=== PATIENT | male | born 1980 | race Caucasian/White ===

== ENCOUNTER 2017-09-12 09:05 | Emergency (ER) | payer SELFPAY ==
[~2017-09-12] VITALS: Ht 193 cm; Wt 90.0 kg
[~2017-09-12 09:05] MED LIST: ATENOLOL50 MG PO; KLONOPIN0.5 M1 PO; LEXAPRO10 MG PO; LORTAB5 PO; MIRTAZAPINE15 MG PO; NAPROSYN500 MG PO; NO CURRENT MEDS; PAXIL30 MG PO; ROBITUSSIN AC10 ML PO; ULTRAM50 M1 PO; XANAX0.5 MG PO; ZOLOFT50 MG PO
[2017-09-12 09:36] LABS: HEMOGLOBIN 14.4 g/dl (14.0-18.0); IMMATURE GRANULOCYTES 0.5 % (0.0-1.0); MEAN CORPUSCULAR HGB 36.5 pG CALC (26.0-32.0); MEAN CORPUSCULAR HGB CONC 34.3 g/L CALC (32.0-36.0); NEUT# 3.45 thou/uL (1.82-7.42); RED BLOOD COUNT 3.94 mill/uL (4.70-6.10)
[2017-09-12 09:52] LABS: MEAN CELL VOLUME 106.6 fL CALC (80.0-100.0)
[2017-09-12 10:06] LABS: ALBUMIN 4.9 g/dL (3.2-5.0); ALKALINE PHOSPHATASE 88 u/l (38-126); ANION GAP 18 (6-22 (CALC)); BILIRUBIN, TOTAL 0.4 mg/dL (0.0-1.4); BUN 13 mg/dL (9-20); BUN/CREATININE RATIO 17 (12-20 (CALC)); CARBON DIOXIDE 25 mmol/l (22-30); CHLORIDE 99 mmol/l (95-108); CREATININE 0.8 mg/dL (0.7-1.3); GFR > 60 ML/MIN (>=60 (CALC)); GFR FOR AFR.AMER. > 60 ML/MIN (>=60 (CALC)); POTASSIUM 3.7 mmol/l (3.5-5.1); SGOT/AST 74 u/l (17-59); SGPT/ALT 64 u/l (21-72); SODIUM 138 mmol/l (137-146); TOTAL PROTEIN 8.1 g/dL (6.3-8.2)
[2017-09-12 10:23] LABS: URINE BILIRUBIN - DIPSTICK NEGATIVE (NEGATIVE); URINE BLOOD DIPSTICK NEGATIVE (NEGATIVE); URINE COLOR YELLOW; URINE GLUCOSE - DIPSTICK NEGATIVE (NEGATIVE); URINE KETONE TRACE mg/dL (NEGATIVE); URINE LEUK ESTERASE NEGATIVE (NEGATIVE); URINE NITRITE - DIPSTICK NEGATIVE (Negative); URINE PROTEIN - DIPSTICK TRACE mg/dL (NEG-TRACE); URINE UROBILINOGEN - DIPSTICK 0.2 E.U./dL (0.2)
[2017-09-12 10:56] LABS: BARBITURATES NEGATIVE (NEGATIVE); COCAINE NEGATIVE (NEGATIVE); METHADONE NEGATIVE (NEGATIVE); OXCYCODONE NEGATIVE (NEGATIVE); TETRAHYDROCANNABIONOL NEGATIVE (NEGATIVE); TRICYLIC ANTIDEPRESSANTS NEGATIVE (NEGATIVE); URINE CLARITY CLEAR
[2017-09-12] MEDS ORDERED: KLONOPIN1 MG PO (11:25)
[2017-09-12] MEDS ORDERED: ANTIVERT PO (11:25)
[2017-09-12 12:20] VITALS: BP 168/93
== END 2017-09-12 12:25 | disposition home or self-care (01) | DRG 149 ==
LOC: ED 09:05
PROVIDERS: Emergency Medicine
DX: R42 Dizziness and giddiness (principal); F41.9 Anxiety disorder, unspecified; I10 Essential (primary) hypertension; Z91.14 Patient's other noncompliance with medication regimen
CPT/HCPCS: J2060

== ENCOUNTER 2018-11-27 10:34 | Emergency (ER) | payer SELFPAY ==
[~2018-11-27] VITALS: Ht 193 cm; Wt 107.0 kg
[~2018-11-27 10:34] MED LIST changes: +ANTIVERT PO; +KLONOPIN1 MG PO
[2018-11-27] MEDS ORDERED: KEFLEX500 M1 PO (12:46)
[2018-11-27 12:57] VITALS: BP 129/69
== END 2018-11-27 12:57 | disposition home or self-care (01) | DRG 607 ==
LOC: ED 10:34
DX: B35.3 Tinea pedis (principal); L03.116 Cellulitis of left lower limb; L03.115 Cellulitis of right lower limb; I10 Essential (primary) hypertension

== ENCOUNTER 2020-10-13 09:48 | Inpatient (IN) | payer SELFPAY ==
[~2020-10-13] VITALS: Ht 193 cm; Wt 130.0 kg
[~2020-10-13 09:48] MED LIST changes: +KEFLEX500 M1 PO
--- NOTE | 2020-10-13 09:52 | NUR ---
PATIENT TO ROOM VIA WHEELCHAIR AND PHYSICIAN AT BEDSIDE FOR EVAL
--- NOTE | 2020-10-13 10:53 | NUR ---
PATIENTRESTING, NO DISTRESS. AAOX4. VSS. AWAITING RESUTLS
[2020-10-13 11:10] LABS: IMMATURE GRANULOCYTES 0.4 % (0.0-5.0); MEAN CORPUSCULAR HGB CONC 33.4 g/dL CAL (32.0-36.0); NEUT# 11.26 thou/uL (1.82-7.42); RED BLOOD COUNT 2.34 mill/uL (4.70-6.10); RED CELL DISTRI WIDTH 21.7 % (11.5-15.5)
[2020-10-13 11:11] LABS: HEMATOCRIT 30.8 % (39.0-50.0); HEMOGLOBIN 10.3 g/dl (14.0-18.0); MEAN CELL VOLUME 131.6 fL CALC (80.0-100.0)
[2020-10-13 11:13] LABS: ALKALINE PHOSPHATASE 126 u/l (38-126); AMYLASE 64 u/l (30-110); BUN 8 mg/dL (9-20); BUN/CREATININE RATIO 11 (12-20 (CALC)); CARBON DIOXIDE 28 mmol/l (22-30); CREATININE 0.7 mg/dL (0.7-1.3); GFR > 60 ML/MIN (>=60 (CALC)); GFR FOR AFR.AMER. > 60 ML/MIN (>=60 (CALC)); LIPASE 101 u/l (23-300); POTASSIUM 3.2 mmol/l (3.5-5.1); TOTAL PROTEIN 6.9 g/dL (6.3-8.2)
[2020-10-13 11:14] LABS: ANION GAP 18 (6-22 (CALC)); BILIRUBIN, TOTAL 9.7 mg/dL (0.0-1.4); CHLORIDE 85 mmol/l (95-108); SGOT/AST 353 u/l (17-59); SODIUM 128 mmol/l (137-146)
--- NOTE | 2020-10-13 12:00 | NUR ---
PATENT RESTING, AWAITING RESULTS
--- NOTE | 2020-10-13 13:00 | NUR ---
PATIENT RESTING, IVF INFUSING
--- NOTE | 2020-10-13 14:53 | NUR ---
THIRD REQUEST FOR URINE SPECIMEN. IVF INFUSED.
[2020-10-13 15:09] LABS: URINE BLOOD DIPSTICK SMALL (NEGATIVE); URINE GLUCOSE - DIPSTICK 100 mg/dL (NEGATIVE); URINE KETONE TRACE mg/dL (NEGATIVE); URINE LEUK ESTERASE TRACE (NEGATIVE); URINE PROTEIN - DIPSTICK 30 mg/dL (NEG-TRACE)
[2020-10-13 15:10] LABS: URINE BILIRUBIN - DIPSTICK LARGE (NEGATIVE); URINE COLOR DK. YELLOW; URINE NITRITE - DIPSTICK POSITIVE (Negative)
[2020-10-13 15:14] LABS: URINE BACTERIA FEW hpf; URINE HYALINE CAST FEW lpf (NONE-RARE); URINE RBC 0-2 RBC/hpf (0-5); URINE SQUAMOUS EPITHELIAL CELL FEW EPI/hpf (0-FEW); URINE WBC 0-2 WBC/hpf (0-5)
--- NOTE | 2020-10-13 15:39 | NUR ---
SPOKE WITH PATIENT AT THIS TIME PATIENT DOES NOT WANT TO BE ADMITTED. PATIENT STATES WILL RETURN TOMORROW FOR ADMIT. PATIENT ENCOURAGED TO STAY. PATIENT INFORMED OF RISKS OF LEAVING AMA INCLUDING AND UP TO . PATIENT VERBALIZES UNDERSTANDING MD NOTIFIED OF PATIENT STATUS
--- NOTE | 2020-10-13 16:00 | NUR ---
PLAN DISCUSSED, PATIENT AGREES TO BE ADMITTED. NO DISTRESS.
--- NOTE | 2020-10-13 17:00 | NUR ---
WATER PROVIDED. PATIENT RESTING, NO DISTRESS
--- NOTE | 2020-10-13 19:06 | NUR ---
REPORT RECEIVED FROM Mariaelena JOHANSEN RN.
--- NOTE | 2020-10-13 19:09 | NUR ---
REPORT CALLED TO FRIDA AT THIS TIME.
--- NOTE | 2020-10-13 19:20 | NUR ---
Admission Note Report Given to: Transported by: Wheelchair X Stretcher Transported with: X Nurse Transporter X Patent IV O2 X Recycling Sorter Location: ICU X MS2
[2020-10-13 19:25] VITALS: BP 129/76
--- NOTE | 2020-10-13 19:34 | NUR ---
PATIENT ARRIVED VIA STRETCHER ACCOMPANIED BY ER STAFF. ORIENTED X3. ABLE TO AMBULATE WITHOUT ASSIST. ADMISSION ASSESMENT AND VITALS COMPLETED AT THIS TIME. #20 G IN RIGHT AC INFUSING IVF AT 100 ML/HR, B/P 129/76, HR 131, RESPIRATIONS 18 EVEN AND UNLABORED. HR RATE SYNUS TACHY RUNNING 120-130'S ACCORDING TO TELE. LUNGS CLEAR BILATERALLY, ACTIVE BOWEL SOUNDS. PITTING EDEMA NOTED THROUGHOUT BILATERAL LEGS 3+. YELLOWING OF SCLERA NOTED BILATERAL EYES. PATIENT STATES HE STOPPED SMOKING A MONTH AGO DUE TO ILLNESS AND HAS IN THE PAST 2-3 DAYS STOPPED DRINKING. PATIENT ORIENTED TO CALL LIGHT AND ASKED TO CALL IF HE IS TO NEED ASSISTANCE.
--- NOTE | 2020-10-13 20:10 | NUR ---
ORDERS RECIEVED FOR LOPRESSOR 25MG PO/LOPRESSOR IV 5MG, ATIVAN 1MG IV, AND LIBRIUM 25MG PO.
--- NOTE | 2020-10-13 20:23 | NUR ---
MEDICATIONS ADMINISTERED AT THIS TIME, SEE EMAR
--- NOTE | 2020-10-13 20:23 | NUR ---
PATIENT REFUSED LOVENOX INJECTION. STATES IT WILL MESS WITH HIS BELLY. PATIENT EDUCATED ON ADMNISTRATIONS AND MECHANISM. PATIENT VERBALIZES UNDERSTANDING, REFUSES INJECTION.
--- NOTE | 2020-10-13 21:16 | NUR ---
REASSESEMENT OF HR BY Daniella RUVALCABAA; HR 113
--- NOTE | 2020-10-13 23:04 | NUR ---
ANSWERED PATIENT CALL. UPON ENTERING ROOM PATIENT VOMITING IN TRASH CAN BESIDE THE BED. PROVIDED PATIENT WITH TOWELS AND WASHCLOTHS TO CLEAN UP. PROVIDED EXTRA WASHCLOTHS.
--- NOTE | 2020-10-13 23:27 | NUR ---
ADMINISTERED ATIVAN 1MG, FOR WITHDRAWAL SYMPTOMS, SEE EMAR.
[2020-10-14] VITALS: BP 92/55
--- NOTE | 2020-10-14 00:11 | NUR ---
PATIENT RESTING COMFORTABLY IN BED, IN NO APPARENT DISSTRESS, PATIENT STATES HE FEELS "MUCH BETTER". WILL CON'T TO MONITOR.
--- NOTE | 2020-10-14 00:30 | NUR ---
PATIENT SLEEPING SOUNDLY IN BED HR 105. WILL CON'T TO MONITOR.
[2020-10-14 04:00] VITALS: BP 100/55
--- NOTE | 2020-10-14 04:17 | NUR ---
FELY AT BEDSIDE DRAWING BLOOD
[2020-10-14 05:12] LABS: HEMATOCRIT 26.6 % (39.0-50.0); HEMOGLOBIN 9.7 g/dl (14.0-18.0); MEAN CORPUSCULAR HGB 43.1 pG CALC (26.0-32.0); MEAN CORPUSCULAR HGB CONC 36.5 g/dL CAL (32.0-36.0); RED BLOOD COUNT 2.25 mill/uL (4.70-6.10); RED CELL DISTRI WIDTH 20.5 % (11.5-15.5)
[2020-10-14 05:21] LABS: MEAN CELL VOLUME 118.2 fL CALC (80.0-100.0)
--- NOTE | 2020-10-14 05:28 | NUR ---
ACCORDING TO ED, PATIENT SYNUS TACH 110
[2020-10-14 05:56] LABS: ALBUMIN 2.7 g/dL (3.2-5.0); ALKALINE PHOSPHATASE 120 u/l (38-126); ANION GAP 14 (6-22 (CALC)); BILIRUBIN, TOTAL 11.2 mg/dL (0.0-1.4); BUN 11 mg/dL (9-20); BUN/CREATININE RATIO 12 (12-20 (CALC)); CARBON DIOXIDE 30 mmol/l (22-30); CHLORIDE 90 mmol/l (95-108); CREATININE 0.9 mg/dL (0.7-1.3); GFR > 60 ML/MIN (>=60 (CALC)); GFR FOR AFR.AMER. > 60 ML/MIN (>=60 (CALC)); POTASSIUM 3.4 mmol/l (3.5-5.1); SGOT/AST 327 u/l (17-59); SODIUM 130 mmol/l (137-146); TOTAL PROTEIN 6.5 g/dL (6.3-8.2)
--- NOTE | 2020-10-14 07:00 | NUR ---
REPORT RECEIVED FROM AARON GALICIA
[2020-10-14 08:54] VITALS: BP 107/54
--- NOTE | 2020-10-14 08:55 | NUR ---
PT RESTING IN SEMI FOWLERS POSITION,A&O X3;VS OBTAINED AND ASSESSMENT COMPLETED;PT DENIES ANY CURRENT PAIN OR DISCOMFORTS,PAIN SCALE AND REPORTING EDUCATED;RESPIRATIONS EVEN AND UNLABORED ON RA,CLEAR LUNG SOUNDS;ABDOMEN DISTENDED/SOFT ON PALPATION AND ACTIVE IN ALL 4 QUADRANTS;WEAK PEDAL PULSES;SKIN INTACT;TELE MONITORING IN PLACE;#20G TO RAC INFUSING NS @ 100ML/HR,SITE APPEARS HEALTHY;PRN LIBRIUM PROVIDED AT THIS TIME;PT DENIES ANY ADDITIONAL NEEDS AND IS ENCOURAGED TO CALL FOR ASSISTANCE IF NEEDED;FALL PRECAUTIONS IN PLACE WITH BED IN THE LOWEST POSTION AND CALL LIGHT IN REACH;WILL CONTINUE TO MONITOR
[2020-10-14 10:06] LABS: INTERNATIONAL NORMALIZED RATIO 1.5 RATIO (0.7-1.3); PROTHROMBIN TIME 15.5 SECONDS (9.0-12.5)
--- NOTE | 2020-10-14 10:20 | NUR ---
ELI, STORE TEAM MEMBER AT BEDSIDE
--- NOTE | 2020-10-14 10:27 | NUR ---
AT BEDSIDE DISCUSSING POC
--- NOTE | 2020-10-14 10:50 | NUR ---
PT REPORTS NAUSEA AND VOMITED 200CC OF UNDIGESTED FOOD, PT MEDICATED WITH PRN ZOFRAN 4MG IVP;WILL CONTINUE TO MONITOR FOR EFFECTIVENESS
[2020-10-14 11:15] VITALS: BP 94/56
--- NOTE | 2020-10-14 11:40 | NUR ---
PT RESTING IN SEMI FOWLERS POSITION;RESPIRATIONS EVEN AND UNLABORED ON RA;PT DENIES ANY CURRENT PAIN OR DISCOMFORTS;TELE MONITORING IN PLACE;IV SITE PATENT INFUSING BANANA BAG WITH EASE;PT ENCOURAGED TO CALL FOR ASSISTANCE IF NEEDED;FALL PRECAUTIONS REMAIN IN PLACE WITH CALL LIGHT IN REACH;WILL CONTINUE TO MONITOR
--- NOTE | 2020-10-14 15:00 | NUR ---
PT MEDICATED WITH PRN LIBRIUM 25MG PO AT THIS TIME.
--- NOTE | 2020-10-14 15:20 | NUR ---
PT RESTING IN SEMI FOWLERS POSITION;RESPIRATIONS EVEN AND UNLABORED ON RA;PT DENIES ANY CURRENT PAIN OR DISCOMFORTS;TELE MONITORING IN PLACE;IV SITE PATENT INFUSING BANANA BAG WITH EASE;ICE WATER AND ADDITIONAL BLANKETS PROVIDED PER REQUEST;PT ENCOURAGED TO CALL FOR ASSISTANCE IF NEEDED;FALL PRECAUTIONS REMAIN IN PLACE WITH CALL LIGHT IN REACH;WILL CONTINUE TO MONITOR
[2020-10-14 15:33] VITALS: BP 107/50
--- NOTE | 2020-10-14 18:45 | NUR ---
REPORT RECEIVED FROM Marcie YOON RN
[2020-10-14 19:00] VITALS: BP 90/48
--- NOTE | 2020-10-14 19:23 | NUR ---
REPORT RECEIVED FROM Marcie YOON RN
--- NOTE | 2020-10-14 20:33 | NUR ---
PATIENT RESTING COMFORTABLY WATCHING TV. ASSESMENT COMPLETED AT THIS TIME. #20 G ON RIGHT AC INFUSING NORMAL SALINE AT 100ML/HR. NORMAL HEART SSOUNDS, CLEAR LUNG SOUNDS BILATERALLY AND IN ALL LOBES, ACTIVE BOWEL SOUNDS, SOFT DISTENDED BELLY. LAST REPORTED BM 10/13/20. PATIENT NOTED TO HAVE YELLOW TINGE TO BOTH SCLERA, AND JAUDICE THROUGHOUT. BILATERAL LEG EDEMA AT 3+. TEA COLORED URINE OBSERVED. PATIENT DENIES ANY CURRENT PAIN OR ANY CURRENT NEEDS. CARE PLAN REVIEWED AT THIS TIME. PATIENT INSTRUCTED TO CALL IF ASSITANCE IS NEEDED. CALL LIGHT AND BEDISIDE TABLE WIHIN REACH. MEDICATIONS ADMINISTERED ACCORDING TO EMAR, SEE EMAR.
[2020-10-15] VITALS: BP 114/62
--- NOTE | 2020-10-15 | NUR ---
PATIENT SLEEPING SOUNDLY, NO SIGNS OF APPRENT DISTRESS
--- NOTE | 2020-10-15 00:40 | NUR ---
CALL RECEIVED FROM ER. RHODES WITH PVS AT 128BPM.
--- NOTE | 2020-10-15 00:45 | NUR ---
PATIENT MEDICATED WITH METORPROLOL IV PER EMAR, SEE EMAR.
--- NOTE | 2020-10-15 00:50 | NUR ---
CALLED ER, SPOKE TO HR CARITO NOW AT 108BPM.
--- NOTE | 2020-10-15 03:06 | NUR ---
CALLED ER, SPOKE TO HR CARITO NOW AT 108BPM.
[2020-10-15 04:00] VITALS: BP 97/51
--- NOTE | 2020-10-15 04:33 | NUR ---
PATIENT SNORING SOFTLY, AWOKEN BY ANALYTICS LEADER, ENCOURAGED TO DRINK WATER AND USE THE RESTROOM.
--- NOTE | 2020-10-15 05:08 | NUR ---
100.8 TEMP REPORTED BY Daniella BEVERLY CNA AT 4AM. REASSED TEMP, CURRENT TEMPERATURE AT 98.7
[2020-10-15 06:06] LABS: ALBUMIN 2.6 g/dL (3.2-5.0); ALKALINE PHOSPHATASE 106 u/l (38-126); ANION GAP 13 (6-22 (CALC)); BILIRUBIN, TOTAL 11.7 mg/dL (0.0-1.4); BUN 13 mg/dL (9-20); BUN/CREATININE RATIO 17 (12-20 (CALC)); CARBON DIOXIDE 28 mmol/l (22-30); CHLORIDE 94 mmol/l (95-108); CREATININE 0.8 mg/dL (0.7-1.3); GFR > 60 ML/MIN (>=60 (CALC)); GFR FOR AFR.AMER. > 60 ML/MIN (>=60 (CALC)); MAGNESIUM 1.9 mg/dL (1.6-2.3); POTASSIUM 3.7 mmol/l (3.5-5.1); SGOT/AST 292 u/l (17-59); SODIUM 132 mmol/l (137-146); TOTAL PROTEIN 6.2 g/dL (6.3-8.2)
[2020-10-15 06:10] LABS: HEMATOCRIT 24.6 % (39.0-50.0); IMMATURE GRANULOCYTES 0.4 % (0.0-5.0); MEAN CELL VOLUME 121.8 fL CALC (80.0-100.0); MEAN CORPUSCULAR HGB 44.6 pG CALC (26.0-32.0); MEAN CORPUSCULAR HGB CONC 36.6 g/dL CAL (32.0-36.0); NEUT# 8.79 thou/uL (1.82-7.42); RED BLOOD COUNT 2.02 mill/uL (4.70-6.10); RED CELL DISTRI WIDTH 20.8 % (11.5-15.5)
[2020-10-15 06:12] LABS: INTERNATIONAL NORMALIZED RATIO 1.6 RATIO (0.7-1.3); PROTHROMBIN TIME 15.9 SECONDS (9.0-12.5)
[2020-10-15 07:10] VITALS: BP 104/62
--- NOTE | 2020-10-15 07:10 | NUR ---
PATIENT LAYING IN BED AT THIS TIME. RATE ENGINEER DONE AT THIS TIME SEE INTERVENTIONS. PATIENT LUNG GIRARD ARE CLEAR AND PATIENT DOES EXHIBIT JAUNDICE COLOR SKIN TO INCLUDE THE SCLAREA OF THE EYES. PATIENT STATES HE "NEVER HAS NOTICED THIS". PATIENT DOES HAVE 3+ PITTING EDEMA IN BILATERAL LOWER LEGS PRESENT. PATIENT DENIES ANY PAIN BUT DOES STATE HE HAS SOME MILD ANXIETY AND CIWA SCORE WAS A 1 AT THIS TIME. BLADDER SCANNED AND WAS FOUND TO HAVE 55 ML IN BLADDER AND PATIENT RECENTLY URINATED AND URINE IS TEA IN COLOR. SIDERAILS ARE UP CALL LIGHT WITHIN REACH.
--- NOTE | 2020-10-15 09:15 | NUR ---
CRITICAL RESULTS REC FROM DB OF PROCALCITONIN RESULT OF 0.378, RESULTS GIVEN TO Tana BIRCH APRN.
--- NOTE | 2020-10-15 09:17 | NUR ---
PATIENT GIVEN 0.5MG OF IV ATIVAN AT THIS TIME. PATIENT STATES I FEEL 'JUST A LITTLE ANXIOUS. PATIENT SIDERAILS ARE UP AND PATIENT ADVISED NOT TO GET UP WITHOUT ASSISTANCE AT THIS TIME. PATIENT VERBALIZES UNDERSTANDING OF THIS REQUEST. WILL CONTINUE TO MONITOR.
--- NOTE | 2020-10-15 09:24 | NUR ---
NURSE DARRIUS WALKER TOOK A CRITICAL LAB ON THIS PATIENT PROCALCITONIN WAS 0.328 LUCILA GARCES NOTIFIED AT THIS TIME. NO NEW ORDERS GIVEN
--- NOTE | 2020-10-15 11:00 | NUR ---
PATIENT RETURNED FROM CT DENEIS ANY NEEDS SIDERAIL ARE UP CALL LIGHT NEAR. WILL CONTINUE TO MONITOR AT THIS TIME.
--- NOTE | 2020-10-15 12:46 | NUR ---
PATIENT STATED THAT HE WENT TO THE BATHROOM AND VOIDED A LARGE AMOUNT OF URING AT THIS TIME. PATIENT WAS ASKED TO USE URINAL SO THAT WE CAN MEASURE HIS URINE AND PATIENT STATED "I DON'T LIKE TO USE THOSE THINGS". PATIENT ENCOURGED TO TRY IF HE COULD TO USE URINAL. PATIENT STATED "I WILL TRY". PATIENT CALL LIGHT WITHIN REACH SIDERAILS ARE UP X 2
[2020-10-15 15:00] VITALS: BP 95/49
--- NOTE | 2020-10-15 15:17 | NUR ---
PATIENT RESTING IN BED AT THIS TIME. PATIENT DENIES ANY PAIN AND OR ANXIETY AT THIS TIME. PATIENT COLOR REMAINS JAUNDICE AT THIS TIME AND 3+ PITTING EDEMA REMAINS IN BILATERAL LOWER LEGS AND ANKLES. PATIENT HAS TELE MONITOR ON AND IS BEING MONTIORED BY ED. SIDERAILS ARE UP CALL LIGHT IS WITHIN REACH AT THIS TIME.
--- NOTE | 2020-10-15 16:03 | NUR ---
MEDICATED PATIENT AT THIS TIME WITH 600MG OF IBUPROFEN DUE TO PATIENTS TEMP OF 99.7. WILL CONTINUE TO MONITOR PATIENT.
--- NOTE | 2020-10-15 16:56 | NUR ---
PATIENT TEMP RECHECKED AT THIS TIME AND IT IS 99.3 WILL CONTINUE TO MONITOR.
[2020-10-15 18:00] VITALS: BP 105/55
--- NOTE | 2020-10-15 20:05 | NUR ---
PT AMBULATING THE ROOM WATCHING THE HELICOPTER THROUGH THE WINDOW. INFORMED HIM THAT I COULD COME BACK TO ASSESS AND MEDICATE/AGREED.
--- NOTE | 2020-10-15 20:59 | NUR ---
PT MEDICATED ORDERS PROVIDE AND ASSESSMENT COMPLETED AT THIS TIME. POC AND MED SCHEDULE DISCUSSED AT THIS TIME. PT DENIES ANY OTHER NEEDS AT THIS TIME. HE REPORTS URINATING IN RESPONSE TO THE LASIX, HE STATED, "IT REALLY WORKED, I HAD A LOT OF URINE OUT." HE IS NOT USING URINAL FOR US TO MEASURE, WE REDISCUSSED THIS, BUT HE STATES "IT'S OKAY." I ENCOURAGED HIM TO CALL ANY NEEDS ARISE. COMFORT MEASURES PROVIDED AT THIS TIME W/SNACK/DRINK.
[2020-10-15 23:53] VITALS: BP 92/55
[2020-10-16 03:39] VITALS: BP 90/54
--- NOTE | 2020-10-16 04:17 | NUR ---
PT IN BED WITH LIGHTS OUT EYES CLOSED, LAB WAS JUST AT BEDSIDE OBTAINING LAB DRAW. NO S/O DISTRESS NOTED. IVF RUNNING KVO.
[2020-10-16 05:40] LABS: HEMATOCRIT 24.8 % (39.0-50.0); IMMATURE GRANULOCYTES 0.9 % (0.0-5.0); MEAN CELL VOLUME 123.4 fL CALC (80.0-100.0); MEAN CORPUSCULAR HGB 44.8 pG CALC (26.0-32.0); MEAN CORPUSCULAR HGB CONC 36.3 g/dL CAL (32.0-36.0); NEUT# 8.64 thou/uL (1.82-7.42); RED BLOOD COUNT 2.01 mill/uL (4.70-6.10); RED CELL DISTRI WIDTH 20.8 % (11.5-15.5)
[2020-10-16 05:56] LABS: ALBUMIN 2.7 g/dL (3.2-5.0); ALKALINE PHOSPHATASE 151 u/l (38-126); ANION GAP 13 (6-22 (CALC)); BILIRUBIN, TOTAL 12.5 mg/dL (0.0-1.4); BUN 15 mg/dL (9-20); BUN/CREATININE RATIO 17 (12-20 (CALC)); CARBON DIOXIDE 27 mmol/l (22-30); CHLORIDE 96 mmol/l (95-108); CREATININE 0.9 mg/dL (0.7-1.3); GFR > 60 ML/MIN (>=60 (CALC)); GFR FOR AFR.AMER. > 60 ML/MIN (>=60 (CALC)); MAGNESIUM 1.7 mg/dL (1.6-2.3); POTASSIUM 3.5 mmol/l (3.5-5.1); SGOT/AST 294 u/l (17-59); SODIUM 131 mmol/l (137-146); TOTAL PROTEIN 6.6 g/dL (6.3-8.2)
[2020-10-16 06:13] LABS: INTERNATIONAL NORMALIZED RATIO 1.6 RATIO (0.7-1.3); PROTHROMBIN TIME 16.1 SECONDS (9.0-12.5)
--- NOTE | 2020-10-16 06:23 | NUR ---
PT MEDICATED WITH LIBRIUM. MILD TREMORS, DENIES ANY AUDITORY OR VISUAL DISTURBANCES.
--- NOTE | 2020-10-16 07:00 | NUR ---
SHIFT REPORT, ALERT AND ORIENTED SITTING IN BED, DENIES DISCOMFORT, STATES BECOMES ANXIOUS AT TIMES, IVF INFUSING, TELE MONITOR IN PLACE, FEET SWOLEN, CALL LANDRY IN RECH.
[2020-10-16 07:45] VITALS: BP 106/56
[2020-10-16 11:53] VITALS: BP 86/56
--- NOTE | 2020-10-16 12:00 | NUR ---
MEDICAL TEAM ROUNDED, DISCUSSED POC, PT STATES UNDERSTANDING.
--- NOTE | 2020-10-16 16:00 | NUR ---
RELAXING IN BED, CONDITION UNCHANGED, NO SIGN ANXIETY OR TREMORS, RELAXING WATCHING TV.
--- NOTE | 2020-10-16 19:30 | NUR ---
PT IN BED WITH LIGHTS LOW, AWAKE. ASSESSMENT COMPLETED AT THIS TIME AND POC DISCUSSED. PT DENIED ANY NEEDS AT THIS TIME. CALL LIGHT AT SIDE.
--- NOTE | 2020-10-16 21:09 | NUR ---
PT MEDICATED ORDER PROVIDE. BP REASSESSED AND MEDICATIONS ADMINISTERED. HR 118, BP 96/56. WE ASSISTED PT TO CHAIR AND REMADE HIS BED WITH FRESH BEDDING. PT WAS VERY WEAK GETTING OUT OF THE BED AND AMBULATING. EDEMA BLE 3+.
[2020-10-17] VITALS (9 sets, daily range): BP systolic 82–143; BP diastolic 43–62
--- NOTE | 2020-10-17 00:47 | NUR ---
V/S ASSESSED, PT HOB FLAT WITH FEET SLIGHTLY ELEVATED. HE WAS SLEEPING, AWAKENED TO MY VOICE AND PROMPTLY RETURNED TO SLEEP, DENIES DIZZINESS OR LIGHT HEADED FEELING. CALL LIGHT AT SIDE AND PT ENCOUARGED TO CALL.
--- NOTE | 2020-10-17 03:50 | NUR ---
CERTIFIED ADAPTIVE PHYSICAL EDUCATOR AT BEDSIDE OBTAINING V/S. PT AWOKE TO OUR VOICES, DENIES ANY NEEDS AT THIS TIME.
[2020-10-17 05:11] LABS: HEMATOCRIT 23.3 % (39.0-50.0); HEMOGLOBIN 8.6 g/dl (14.0-18.0); MEAN CELL VOLUME 123.3 fL CALC (80.0-100.0); MEAN CORPUSCULAR HGB 45.5 pG CALC (26.0-32.0); MEAN CORPUSCULAR HGB CONC 36.9 g/dL CAL (32.0-36.0); RED BLOOD COUNT 1.89 mill/uL (4.70-6.10); RED CELL DISTRI WIDTH 21.2 % (11.5-15.5)
[2020-10-17 05:29] LABS: ANION GAP 13 (6-22 (CALC)); BUN 19 mg/dL (9-20); BUN/CREATININE RATIO 20 (12-20 (CALC)); CARBON DIOXIDE 26 mmol/l (22-30); CHLORIDE 96 mmol/l (95-108); CREATININE 0.9 mg/dL (0.7-1.3); GFR > 60 ML/MIN (>=60 (CALC)); GFR FOR AFR.AMER. > 60 ML/MIN (>=60 (CALC)); MAGNESIUM 1.7 mg/dL (1.6-2.3); POTASSIUM 3.8 mmol/l (3.5-5.1); SODIUM 131 mmol/l (137-146)
--- NOTE | 2020-10-17 05:29 | NUR ---
TEMPERATURE RECHECKED 98.4. PT WAS SLEEPING, AWOKE TO MY VOICE. NO S/O DISTRESS NOTED. DENIES NEEDS.
--- NOTE | 2020-10-17 07:00 | NUR ---
REPORT RECEIVED FROM AARON ROME
--- NOTE | 2020-10-17 07:50 | NUR ---
PT RESTING IN SEMI FOWLERS POSITION,A&O X3;VS OBTAINED AND ASSESSMENT COMPLETED;PT DENIES ANY CURRENT PAIN OR DISCOMFORTS,PAIN SCALE AND REPORTING EDUCATED;RESPIRATIONS EVEN AND UNLABORED ON RA,CLEAR LUNG SOUNDS;ABDOMEN SOFT ON PALPATION AND ACTIVE IN ALL 4 QUADRANTS;WEAK PEDAL PULSES WITH +2 EDEMA TO BLE, ENCOURAGED ELEVATION OF BLE;#20G TO RAC INFUSING NS @ 20ML/HR,SITE APPEARS HEALTHY;TELE MONITORING IN PLACE;PT DENIES ANY ADDITIONAL NEEDS AND IS ENCOURAGED TO CALL FOR ASSISTANCE IF NEEDED;FALL PRECAUTIONS IN PLACE WITH BED IN THE LOWEST POSITION AND CALL LIGHT IN REACH;WILL CONTINUE TO MONITOR
--- NOTE | 2020-10-17 10:05 | NUR ---
AT BEDSIDE DISCUSSING POC.
--- NOTE | 2020-10-17 11:00 | NUR ---
PT OOB RESTING IN RECLINER;RESPIRATIONS EVEN AND UNLABORED ON RA;PT DENIES ANY CURRENT PAIN OR DISCOMFORTS;TELE MONITORING IN PLACE;IV SITE PATENT INFUSING NS WITH EASE PER ORDER;PT ENCOURAGED TO CALL FOR ASSISTANCE IF NEEDED;FALL PRECAUTIONS IN PLACE WITH BED IN THE LOWEST POSITION AND CALL LIGHT IN REACH;WILL CONTINUE TO MONITOR
--- NOTE | 2020-10-17 12:36 | NUR ---
Physical Therapy Visit Patient was seen and treated today. Patient identified by full name and date of . Physical Therapy Management 1. Active range of motion of both UE and LE x 5-10 repetitions. 2. Sit and stand and stand and sit x 5 repetitions. 3. Sitting tolerance x 5 minutes. 4. Standing balance/tolerance x 3-5 minutes. 5. Marching x 10 repetitions with minimal assist. Patient was able to perform all exercises but fatigued quickly. Unsteadiness observed while patient is attempting to sit and stand and trying to maintain standing position. Fall precautions reviewed, patient verbalized understanding.
--- NOTE | 2020-10-17 15:30 | NUR ---
PT RESTING IN SEMI FOWLERS POSITION;RESPIRATIONS EVEN AND UNLABORED ON RA;PT DENIES ANY CURRENT PAIN OR DISCOMFORTS;TELE MONITORING IN PLACE;IV SITE PATENT INFUSING NS WITH EASE PER ORDER;PT ENCOURAGED TO CALL FOR ASSISTANCE IF NEEDED;FALL PRECAUTIONS IN PLACE WITH BED IN THE LOWEST POSITION AND CALL LIGHT IN REACH;WILL CONTINUE TO MONITOR
--- NOTE | 2020-10-17 16:30 | NUR ---
CONSULT COMPLETED AT THIS TIME.
--- NOTE | 2020-10-17 16:49 | NUR ---
PT MEDICATED WITH 1MG OF ATIVAN SLOW IVP PER REQUEST FOR ANXIETY, WILL CONTINUE TO MONITOR FOR EFFECTIVENESS
--- NOTE | 2020-10-17 20:23 | NUR ---
PT ASSESSMENT COMPLETED AT THIS TIME. PT ALSO MEDICATED ORDERS PROVIDE. HR ST105, BP STABLE. LUNG SOUNDS ARE CLEAR. PT DENIES ANY DISTRESSES. SNACK PROVIDED.
--- NOTE | 2020-10-17 20:56 | NUR ---
PT MEDICATED WITH LIBRIUM. HE ASKED IF HE COULD HAVE THE ATIVAN AGAIN, C/O FEELING VERY EMOTIONAL. REPORTS HAVING HAD A PANIC ATTACK EARLIER AND STILL FEELS ANXIOUS. UNABLE TO MEDICATE WITH ATIVAN AT THIS TIME, PREVIOUSLY GIVEN THIS AFTERNOON. PT AGREED THAT HE FELT MAYBE THE LIBRIUM WOULD HELP. MILD TREMORS OBSERVED AT THIS TIME.
--- NOTE | 2020-10-18 01:11 | NUR ---
PT MEDICATED ORDERS ALLOW FOR ANXIOUSNESS AND IVF REPLENISHED AT THIS TIME.
[2020-10-18 04:00] VITALS: BP 113/65
--- NOTE | 2020-10-18 04:50 | NUR ---
LAB IS IN WITH THE PT. IVPUMP CLEARED AT THIS TIME. PT STATES HE HAS BEEN SLEEPING AND APPEARS GROGGY, PROMPTLY RETURNED TO SLEEP. NO S/O DISTRESS.
[2020-10-18 05:35] LABS: HEMATOCRIT 25.9 % (39.0-50.0); HEMOGLOBIN 9.4 g/dl (14.0-18.0); IMMATURE GRANULOCYTES 1.2 % (0.0-5.0); MEAN CORPUSCULAR HGB 46.1 pG CALC (26.0-32.0); MEAN CORPUSCULAR HGB CONC 36.3 g/dL CAL (32.0-36.0); NEUT# 6.85 thou/uL (1.82-7.42); RED BLOOD COUNT 2.04 mill/uL (4.70-6.10); RED CELL DISTRI WIDTH 23.2 % (11.5-15.5)
[2020-10-18 05:44] LABS: ALBUMIN 2.4 g/dL (3.2-5.0); ALKALINE PHOSPHATASE 126 u/l (38-126); ANION GAP 12 (6-22 (CALC)); BILIRUBIN, TOTAL 10.2 mg/dL (0.0-1.4); BUN 18 mg/dL (9-20); BUN/CREATININE RATIO 22 (12-20 (CALC)); CARBON DIOXIDE 26 mmol/l (22-30); CHLORIDE 98 mmol/l (95-108); CREATININE 0.8 mg/dL (0.7-1.3); GFR > 60 ML/MIN (>=60 (CALC)); GFR FOR AFR.AMER. > 60 ML/MIN (>=60 (CALC)); POTASSIUM 3.7 mmol/l (3.5-5.1); SGOT/AST 337 u/l (17-59); SODIUM 132 mmol/l (137-146); TOTAL PROTEIN 6.2 g/dL (6.3-8.2)
--- NOTE | 2020-10-18 07:00 | NUR ---
REPORT RECEIVED FROM AARON ROME
--- NOTE | 2020-10-18 08:00 | NUR ---
PT RESTING IN SEMI FOWLERS POSITION,A&O X3;VS OBTAINED AND ASSESSMENT COMPLETED;PT DENIES ANY CURRENT PAIN OR DISCOMFORTS,PAIN SCALE AND REPORTING EDUCATED;PT MEDICATED WITH PRN LIBRIUM 25MG PO AT THIS TIME PER REQUEST;RESPIRATIONS EVEN AND UNLABORED ON RA,CLEAR LUNG SOUNDS;ABDOMEN SOFT ON PALPATION AND ACTIVE IN ALL 4 QUADRANTS;WEAK PEDAL PULSES WITH +2 EDEMA BLE,ENCOURAGED ELEVATION;#20G TO RAC INFUSING NS @ 20ML/HR,SITE APPEARS HEALTHY;TELE MONITORING IN PLACE;PT DENIES ANY ADDITIONAL NEEDS AND IS ENCOURAGED TO CALL FOR ASSISTANCE IF NEEDED;FALL PRECAUTIONS IN PLACE WITH BED IN THE LOWEST POSITION;CALL LIGHT IN REACH;WILL CONTINUE TO MONITOR
[2020-10-18 08:02] VITALS: BP 114/66
--- NOTE | 2020-10-18 08:55 | NUR ---
PT MEDICATED WITH PRN ATIVAN 1MG SLOW IVP PER REQUEST,WILL CONTINUE TO MONITOR FOR EFFECTIVENESS
[2020-10-18] MEDS ORDERED: ALDACTONE25 MG PO (09:17)
[2020-10-18] MEDS ORDERED: LASIX 40 MG TAB40 MG PO (09:17)
--- NOTE | 2020-10-18 09:18 | NUR ---
AT BEDSIDE DISCUSSING POC WITH PT.
--- NOTE | 2020-10-18 10:50 | NUR ---
PT RESTING IN SEMI FOWLERS POSITION;RESPIRATIONS EVEN AND UNLABORED ON RA;PT DENIES ANY CURRENT PAIN OR NEEDS;IV SITE REMAINS PATENT;TELE MONITORING IN PLACE;PT EDUCATED ON PLANS TO D/C HOME THIS AFTERNOON AND VERBALIZES UNDERSTANDING;ENCOURAGED TO CALL FOR ASSISTANCE IF NEEDED;FALL PRECAUTIONS IN PLACE WITH CALL LIGHT IN REACH;WILL CONTINUE TO MONITOR
[2020-10-18 10:56] VITALS: BP 92/54
--- NOTE | 2020-10-18 12:10 | NUR ---
ALL DISCHARGE INSTRUCTIONS PROVIDED AT THIS TIME;PT INSTRUCTED TO F/U WITH PCP NEXT WEEK AND THAT HE WOULD BENEFIT FROM F/U CHEST CT IN 6 MTHS.CONTINUE HOME [place] MEDICATIONS;RX SENT TO PHARMACY FOR ALDACTONE ANS LASIX AND PT TO TAKE DIRECTED;LOW SODIUM DIET;REPEAT CHEMISTRY IN 1 WEEK AND ORDER SENT WITH PT,NO TYLENOL FOR PAIN ONLY MOTRIN AND NO ALCOHOL USE. EDUCATION FOR A LIVER HEALTHY DIET ALSO PROVIDED;PT DENIES ANY ADDITIONAL QUESTIONS OR NEEDS;IV SITE REMOVED WITH CATHETER INTACT AND TELE MONITORING D/C;WHEELCHAIR TO BE PROVIDED FOR D/C HOME;FAMILY TO TRANSPORT PT HOME;WILL CONTINUE TO MONITOR
--- NOTE | 2020-10-18 12:32 | NUR ---
Discharge instructions given. Patient verbalizes understanding of same. Discharged in stable condition via Wheelchair to Home with family. All belongings sent with pt. PT TRANSPORTED TO [facility] IN STABLE CONDITION VIA WHEELCHAIR ACCOMPANIED BY ZULMA PHILLIPS FOR D/C HOME;ALL BELONGINGS LEFT WITH PT;FAMILY TO TRANSPORT PT HOME.
[2020-12-04] MEDS ORDERED: LACTULOSE PO (11:54)
== END 2020-10-17 12:33 | disposition home or self-care (01) | DRG 433 ==
LOC: ED 09:48 → ED-I 15:45 → ED 16:33 → MS2 16:34
PROVIDERS: Emergency Medicine; Nurse Practitioner; Nurse Practitioner Family; ADMIT Hospitalist; ATTEND Hospitalist
DX: K70.30 Alcoholic cirrhosis of liver without ascites (principal); E87.1 Hypo-osmolality and hyponatremia; F10.20 Alcohol dependence, uncomplicated; K72.90 Hepatic failure, unspecified without coma; E87.6 Hypokalemia; E87.8 Other disorders of electrolyte and fluid balance, not elsewhere classified; E88.09 Other disorders of plasma-protein metabolism, not elsewhere classified; D64.9 Anemia, unspecified; K70.0 Alcoholic fatty liver; I10 Essential (primary) hypertension; F41.9 Anxiety disorder, unspecified; G62.9 Polyneuropathy, unspecified; E80.6 Other disorders of bilirubin metabolism; D69.6 Thrombocytopenia, unspecified; R79.1 Abnormal coagulation profile; R50.9 Fever, unspecified; E83.42 Hypomagnesemia; J98.4 Other disorders of lung; R73.9 Hyperglycemia, unspecified; F17.200 Nicotine dependence, unspecified, uncomplicated; Z20.822 Contact with and (suspected) exposure to COVID-19
CPT/HCPCS: J1650; J2060; J3475; Q9967; S0164

== ENCOUNTER 2020-11-23 10:48 | Inpatient (IN) | payer SELFPAY ==
[~2020-11-23] VITALS: Ht 193 cm; Wt 122.0 kg
[~2020-11-23 10:48] MED LIST changes: +ALDACTONE25 MG PO; +LASIX 40 MG TAB40 MG PO
--- NOTE | 2020-11-23 10:48 | NUR ---
PT TO ROOM VIA EMS STRETCHER.
[2020-11-23 12:02] LABS: HEMOGLOBIN 10.5 g/dl (14.0-18.0); IMMATURE GRANULOCYTES 0.2 % (0.0-5.0); MEAN CORPUSCULAR HGB 38.5 pG CALC (26.0-32.0); MEAN CORPUSCULAR HGB CONC 32.9 g/dL CAL (32.0-36.0); NEUT# 3.53 thou/uL (1.82-7.42); RED BLOOD COUNT 2.73 mill/uL (4.70-6.10); RED CELL DISTRI WIDTH 14.1 % (11.5-15.5)
[2020-11-23 12:04] LABS: HEMATOCRIT 31.9 % (39.0-50.0); MEAN CELL VOLUME 116.8 fL CALC (80.0-100.0)
--- NOTE | 2020-11-23 12:19 | NUR ---
PT RESTING ON SEAM FELLER, ISOLATION PLACED DUE TO TESTING FOR COVID
[2020-11-23] MEDS ORDERED: PREGABALIN75 MG PO (13:21)
[2020-11-23] MEDS ORDERED: INDERAL10 M1 PO (13:21)
[2020-11-23] MEDS ORDERED: LIBRIUM25 M1 PO (13:21)
[2020-11-23 13:42] LABS: ALBUMIN 2.8 g/dL (3.2-5.0); ANION GAP 9 (6-22 (CALC)); BUN 6 mg/dL (9-20); BUN/CREATININE RATIO 9 (12-20 (CALC)); CARBON DIOXIDE 26 mmol/l (22-30); CHLORIDE 101 mmol/l (95-108); CREATININE 0.7 mg/dL (0.7-1.3); GFR > 60 ML/MIN (>=60 (CALC)); GFR FOR AFR.AMER. > 60 ML/MIN (>=60 (CALC)); MAGNESIUM 1.4 mg/dL (1.6-2.3); POTASSIUM 3.6 mmol/l (3.5-5.1); SGOT/AST 78 u/l (17-59); SODIUM 132 mmol/l (137-146); TOTAL PROTEIN 6.2 g/dL (6.3-8.2)
[2020-11-23 13:43] LABS: ALKALINE PHOSPHATASE 57 u/l (38-126); BILIRUBIN, TOTAL 3.3 mg/dL (0.0-1.4)
--- NOTE | 2020-11-23 15:43 | NUR ---
PT RESTING IN BED ON MANAGER OF PROGRAM, NO COMPLAINTS, VSS, AWAITING BED ASSIGNMENT
--- NOTE | 2020-11-23 19:18 | NUR ---
HYPOTENTION WITH LETHARGY NOTED. CALL PLACED TO ADMITTING PHYSICIAN. NEW ORDER FOR 5OOML NS BOLUS THEN CALL PHYSICIAN WITH UPDATE. ANTICIPATE NEED FOR VASOPRESSOR PER PHYSICIAN
--- NOTE | 2020-11-23 22:00 | NUR ---
CALL PLACED TO PHYSICIAN TO UPDATE REQUESTED REGARDING BP AND PATIENT STATUS. NEW ORDER RECEIVED FOR ADDITIONAL 500 ML BOLUS FOR SBP LESS THAN OREQUAL TO 80.
--- NOTE | 2020-11-24 01:00 | NUR ---
PT AGITATED, MULTIPLE ATTEMPTS TO GET OOB. PT PULLED OUT IV. PT VERBALLY DISAGREEABLE. LARGE VOID OF CLEAR YELLOW URINE TO FLOOR. SMALL AMT BM NOTED TO BEDDING. PT REPEATEDLY REMOVING MONITOR LEADS AND PULSE OXIMETRY. PT WITH GROSS TREMORS. PT REPORTS DRINKING ALCOHOL DAILY UP TO THREE DAYS AGO.
--- NOTE | 2020-11-24 01:30 | NUR ---
ATIVAN GIVEN. PT CONTINUES TO ATTEMPT TO GET OUT OF BED AND REMOVE MONITOR LEADS. PLACED IN HOSPITAL BED. 1:1 OBSERVATION FOR SAFETY. CHARGE NURSE, RUPA, NOTIFIED.
--- NOTE | 2020-11-24 02:00 | NUR ---
PT RESTING WITH EYES CLOSED. SENIOR PRODUCT INTEGRITY ENGINEER AT BEDSIDE FOR SAFETY. PT NOT ATTEMPTING TO GET OUT OF BED. MONITORING IN PROGRESS. VSS. WILL CONTINUE TO MONITOR.
--- NOTE | 2020-11-24 03:00 | NUR ---
PT RESTING WITH EYES CLOSED. CONSTANT OBSERVATION NO LONGER NEEDED AT THS TIME. WILL CONTINUE TO MONITOR FREQUENTLY
--- NOTE | 2020-11-24 07:07 | NUR ---
recievedfor care. Patient resting quietly. Call gross in reach.
--- NOTE | 2020-11-24 07:10 | NUR ---
recieved for care,stable. call gross in reach.
--- NOTE | 2020-11-24 08:16 | NUR ---
meal tray given
--- NOTE | 2020-11-24 09:06 | NUR ---
PATIENT SLEEPING.AWAKENS WITH VERBAL STIMULI EASILY. RESPIRATIONS EASY.
--- NOTE | 2020-11-24 10:50 | NUR ---
REPORT TO YOLANDA.IN SBAR FORMAT
--- NOTE | 2020-11-24 11:00 | NUR ---
RECIEVED REPORT FROM JESUS RN, PT RESTING COMFORTABLY ON MONITOR, NO COMPLAINTS AT THIS TIME
--- NOTE | 2020-11-24 13:00 | NUR ---
CALL LIGHT IN REACH, PT RESTING IN BED, CLEANED AND SHEETS CHANGED DUE TO INCONTINENCE
--- NOTE | 2020-11-24 15:00 | NUR ---
PT VSS, NO COMPLAINTS AT THIS TIME, SLEEPING
--- NOTE | 2020-11-24 20:08 | NUR ---
PT RESTING COMFORTABLY IN BED, NO COMPLAINTS AT THIS TIME. VSS
[2020-11-24 20:30] VITALS: BP 138/61
[2020-11-24 22:16] VITALS: BP 108/60
--- NOTE | 2020-11-24 22:45 | NUR ---
ASLEEP QUIETLY W/P/D SKIN SR NO ECTOPY
[2020-11-24 23:16] VITALS: BP 110/57
[2020-11-25] VITALS (8 sets, daily range): BP systolic 105–151; BP diastolic 53–75
--- NOTE | 2020-11-25 01:45 | NUR ---
PT INCONTINENT OF URINE AND SM AMT SOFT PASTY BROWN BM SKIN CARE LINENS CHANGED .
--- NOTE | 2020-11-25 02:15 | NUR ---
PT TAKES QS WATER PO WITH PO MED
--- NOTE | 2020-11-25 06:17 | NUR ---
W/P/D SKIN NO COUGH NO COMGESTION NO SOB.SR NO ST T ANAID
[2020-11-25 10:17] LABS: HEMATOCRIT 30.7 % (39.0-50.0); MEAN CELL VOLUME 115.8 fL CALC (80.0-100.0); MEAN CORPUSCULAR HGB 37.7 pG CALC (26.0-32.0); MEAN CORPUSCULAR HGB CONC 32.6 g/dL CAL (32.0-36.0); RED BLOOD COUNT 2.65 mill/uL (4.70-6.10); RED CELL DISTRI WIDTH 13.8 % (11.5-15.5)
[2020-11-25 10:32] LABS: INTERNATIONAL NORMALIZED RATIO 1.3 RATIO (0.7-1.3); PROTHROMBIN TIME 13.3 SECONDS (9.0-12.5)
[2020-11-25 11:19] LABS: BUN 4 mg/dL (9-20); BUN/CREATININE RATIO 8 (12-20 (CALC)); CHLORIDE 105 mmol/l (95-108); CREATININE 0.6 mg/dL (0.7-1.3); GFR > 60 ML/MIN (>=60 (CALC)); GFR FOR AFR.AMER. > 60 ML/MIN (>=60 (CALC)); POTASSIUM 3.6 mmol/l (3.5-5.1); SODIUM 133 mmol/l (137-146)
[2020-11-25 11:23] LABS: ANION GAP 12 (6-22 (CALC)); CARBON DIOXIDE 20 mmol/l (22-30); MAGNESIUM 1.8 mg/dL (1.6-2.3)
[2020-11-25 12:05] LABS: URINE BLOOD DIPSTICK NEGATIVE (NEGATIVE); URINE COLOR YELLOW; URINE GLUCOSE - DIPSTICK NEGATIVE (NEGATIVE); URINE KETONE 15 mg/dL (NEGATIVE); URINE LEUK ESTERASE NEGATIVE (NEGATIVE); URINE PROTEIN - DIPSTICK NEGATIVE (NEG-TRACE); URINE SPECIFIC GRAVITY 1.025; URINE UROBILINOGEN - DIPSTICK >=8.0 E.U./dL (0.2)
[2020-11-25 12:06] LABS: URINE BILIRUBIN - DIPSTICK SMALL (NEGATIVE); URINE NITRITE - DIPSTICK NEGATIVE (Negative)
--- NOTE | 2020-11-25 17:07 | NUR ---
PATIENT VERY LETHARGIC/DROWSY THIS SHIFT, VERBAL YET DIFFICULT TO UNDERSTAND, NEEDS ANTICIAPTED AND MET PER STAFF. PATIENT IS TO BE NPO AFTER MIDNIGHT TONIGHT FOR A CT OF THE ABDOMEN IN THE MORNING. NO ABLE TO SAFELY ADMINISTER MEDS THIS AFTERNOON--PATIENT WILL NOT WAKE UP ENOUGH TO SAFELY ADMINISTER--REFUSED ALL MEALS THIS SHIFT--INC OF BOWEL AND BLADDER WITH CARE PROVIDED PRN. RESTING SOUNDLY IN BED WITH EYES CLOSED AT THIS TIME--NO APPARENT DISTRESS NOTED. 22 GAUGE PLACED IN LEFT HAND--PATIENT HAD PULLED OUT SITE TO RIGHT HAND--SITE FLUSHES WELL. PT/INR THIS AM RESULTED @ 13.3/1.3. UA COLLECTED @ 11AM THIS MORNING PER MD ORDER--US REVEALED A SMALL AMOUNT OF BILLIRUBIN PRESENT IN URINE--OTHERWISE NEGATIVE. WILL CONT TO ENCOURAGE FOOD AND FLUIDS FOR REMAINDER OF SHIFT. TOTAL CARE WITH ALL ADLS. NO APPARENT DISTRESS.
--- NOTE | 2020-11-25 22:04 | NUR ---
PATIENT RESTING SOUNDLY IN BED WITH EYE CLOSED AT THIS TIME. ABLE TO GET PATIENT TO TAKE ALL MEDS TONIGHT AT HS WITH SOME ENCOURAGEMENT. INC OF BOWEL AND BLADDER WITH CARE PROVIDED PRN. TOTAL CARE WITH ALL ADLS. NO APPARENT DISTRESS NOTED. PATIENT PULLED OUT PIV SITE ONCE AGAIN THIS SHIFT. TO REPLACE SITE BEN. TELEMETRY MONITORING IN PLACE-NO GROSS ABNORMALITIES. PATIENT TO BE NPO AFTER MIDNIGHT FOR ABD US IN THE AM. WILL CONT TO MONITOR FOR ANY FURTHER CHANGES.
--- NOTE | 2020-11-25 23:21 | NUR ---
PATIENT'S ACTUAL ADMISSION ASSESSMENT COMPLETED AT 7PM
[2020-11-26] VITALS (11 sets, daily range): BP systolic 110–144; BP diastolic 61–86
--- NOTE | 2020-11-26 | NUR ---
PT REDSTING IN BED AT THIS TIME. BREATHING EVEN AND UNLABORED. PER PREVIOUS SHIFT NURSE PT HAS DISLODGED HIS IV X 4 AND SHE DID NOT RESTART. WILL ATTEMPT RESTART ON THIS SHIFT. ASSESSMENTS COMPLETED, PLEASE SEE DOCUMENTATION. PT CONTINUES WITH ST ON THE MONITOR. 117. PT NOTED TO BE SLIGHTLY [place], 24. MOUTH CARE PROVIDED BY ASSIGNED LICENSED BONDSMAN. PT IS INCONTINENT OF URINE AND BOWEL. SAFETY PRECUATIONS IN PLACE, AT THIS TIME NURSE AND LICENSED BONDSMAN ARE BEDSIDE WITH PT. WILL CONTINUE TO MONITOR
--- NOTE | 2020-11-26 04:10 | NUR ---
PT DOING WELL AT THIS TIME, MUCH MORE ALERT THAN PREVIOUSLY IN SHIFT. NEW IV STARTED TO LEFT HAND #20-SL. PT TOLERATED WELL. PLACED PT ON O2 WHILE SLEEPING D/T PT SATURATIONS DROPPING INTO THE 80'S. RT NOTIFIED. O2 HAS BEEN REMOVED AT THIS TIME, D/T PT BEING MORE ALERT. LARGE LOOSE BM THIS SHIFT, ASSISTED PRINT PROJECT MANAGER IN CLEANING PT AND COMPLETING LINEN CHANGE. NO COMPLAINTS VOICED. INSTRUCTED PT ON NPO STATUS. PT VERBALIZED UNDERSTANDING. SAFETY PRECAUTIONS REMAIN IN PLACE. NO S/S OF DISTRESS NOTED. WILL CONTINUE TO MONITOR
--- NOTE | 2020-11-26 07:23 | NUR ---
Patient resting in bed with eyes closed. Patient opens eyes to command and answers questions appropiately. AM assessment complete. Patient NPO for ultrasound this morning. Edema noted in lower extremities. Abdomen distended. Monitor shows HR 105 and pulse ox 97% on room air.
[2020-11-26 08:05] LABS: HEMATOCRIT 30.7 % (39.0-50.0); IMMATURE GRANULOCYTES 0.1 % (0.0-5.0); MEAN CELL VOLUME 117.2 fL CALC (80.0-100.0); MEAN CORPUSCULAR HGB 38.2 pG CALC (26.0-32.0); MEAN CORPUSCULAR HGB CONC 32.6 g/dL CAL (32.0-36.0); NEUT# 3.43 thou/uL (1.82-7.42); RED BLOOD COUNT 2.62 mill/uL (4.70-6.10); RED CELL DISTRI WIDTH 13.9 % (11.5-15.5)
[2020-11-26 09:08] LABS: ALBUMIN 2.4 g/dL (3.2-5.0); ALKALINE PHOSPHATASE 45 u/l (38-126); ANION GAP 9 (6-22 (CALC)); BILIRUBIN, TOTAL 2.9 mg/dL (0.0-1.4); BUN 5 mg/dL (9-20); BUN/CREATININE RATIO 8 (12-20 (CALC)); CHLORIDE 104 mmol/l (95-108); CREATININE 0.7 mg/dL (0.7-1.3); GFR > 60 ML/MIN (>=60 (CALC)); GFR FOR AFR.AMER. > 60 ML/MIN (>=60 (CALC)); POTASSIUM 3.7 mmol/l (3.5-5.1); SGOT/AST 71 u/l (17-59); SODIUM 134 mmol/l (137-146); TOTAL PROTEIN 5.7 g/dL (6.3-8.2)
[2020-11-26 09:09] LABS: CARBON DIOXIDE 25 mmol/l (22-30)
--- NOTE | 2020-11-26 09:15 | NUR ---
US completed at bedside
--- NOTE | 2020-11-26 10:30 | NUR ---
Dr. Denny and Christy Taveras JOINERY PATTERNMAKER in to see patient. Informed US completed this morning. Reviewed current medications with patient. Recommended rehab at discharge.
--- NOTE | 2020-11-26 11:50 | NUR ---
Patient was in to see patient. PT able to get patient to sit up at side of bed. Patient became nauseated and had 100 ml of yellow emesis. Assisted patient back to bed. Patient resting with eyes closed. resp even. Monitor in place.
--- NOTE | 2020-11-26 12:43 | NUR ---
Patient in high fowlers position, eyes closed, resp even. Pulse Ox 97% on room air. patient occasionally moans, but is unable to verbalize any complaints. Will continue to monitor.
--- NOTE | 2020-11-26 13:55 | NUR ---
Patient continues with nausea and vomiting. Patient had 100 ml of emesis. Patient unable to keep Lactulose down. Christy Taveras APRN notified via telepone. Awaiting new orders.
--- NOTE | 2020-11-26 15:03 | NUR ---
Patient continues with nausea and vomiting. Unable to give scheduled Lactulose.
--- NOTE | 2020-11-26 16:27 | NUR ---
IV site flushed with 10cc ns after phenergan administration. Rocephin infusion started . Site appears wnl, no redness or swelling. Pt laying quietly on stretcher. Not responding to verbally. Opened eyes when requested. Pt remains very nauseous.
--- NOTE | 2020-11-26 17:04 | NUR ---
1640: RECEIVED VIA BED, EYES CLOSED, SNORING. DID NOT RESPOND WHEN SPEAKING TO HIM. COLOR NIETO, PULSE OX 98%, INCONTINENT OF URINE. ROCEPHINE RUNNING IV IN LEFT HAND, IV SITE INSITU.
--- NOTE | 2020-11-26 17:38 | NUR ---
1720: LACTULOSE GIVEN RECTALLY VIA ENEMA USING WARM WATER. PT. UNABLE TO RETAIN.
--- NOTE | 2020-11-26 18:41 | NUR ---
1840: RESTING QUIETLY, EYES CLOSED, BREATHING EASY. VS REMAIN WNL. OXYGEN VIA CANNULA AT 3L/MIN. NO S/S OF DISTRESS NOTED.
--- NOTE | 2020-11-27 00:42 | NUR ---
1999-oepns eyes briefly in response to touch. heplock 20g left hand without signs of infiltration. Rhonchi throughout anterior chest. pale coloring jaundice. multiple sore on both legs. bedlinen change completed for bowel and urine incontinence. 2139 -incontinent of bowel and urine. complete bed linen change completed. 2339-awake. responded appropriatley to commands. incontinent of urine. linen change completed. stood to void of 200cc urine with assitance of 2.
--- NOTE | 2020-11-27 02:58 | NUR ---
Incontinent of urine--minimally 300+. Bed linen changed. Franklin warm to touch-temp 100. encouraging fluids.
[2020-11-27 04:32] LABS: HEMATOCRIT 33.5 % (39.0-50.0); HEMOGLOBIN 10.7 g/dl (14.0-18.0); IMMATURE GRANULOCYTES 0.1 % (0.0-5.0); MEAN CELL VOLUME 115.9 fL CALC (80.0-100.0); MEAN CORPUSCULAR HGB CONC 31.9 g/dL CAL (32.0-36.0); NEUT# 6.05 thou/uL (1.82-7.42); RED BLOOD COUNT 2.89 mill/uL (4.70-6.10); RED CELL DISTRI WIDTH 13.8 % (11.5-15.5)
[2020-11-27 04:48] LABS: ALBUMIN 2.5 g/dL (3.2-5.0); ALKALINE PHOSPHATASE 44 u/l (38-126); ANION GAP 9 (6-22 (CALC)); BILIRUBIN, TOTAL 2.9 mg/dL (0.0-1.4); BUN 9 mg/dL (9-20); BUN/CREATININE RATIO 15 (12-20 (CALC)); CARBON DIOXIDE 27 mmol/l (22-30); CHLORIDE 104 mmol/l (95-108); CREATININE 0.6 mg/dL (0.7-1.3); GFR > 60 ML/MIN (>=60 (CALC)); GFR FOR AFR.AMER. > 60 ML/MIN (>=60 (CALC)); POTASSIUM 3.5 mmol/l (3.5-5.1); SGOT/AST 58 u/l (17-59); SODIUM 136 mmol/l (137-146); TOTAL PROTEIN 5.9 g/dL (6.3-8.2)
[2020-11-27 04:49] LABS: INTERNATIONAL NORMALIZED RATIO 1.3 RATIO (0.7-1.3); PROTHROMBIN TIME 13.8 SECONDS (9.0-12.5)
[2020-11-27 08:02] VITALS: BP 115/57
--- NOTE | 2020-11-27 10:07 | NUR ---
PT NOTE Patient seated in chair as entered room. TRANSFER TABLE OPERATOR HELPER Kevyn assisted with transfer. Transfer from chair>bed, MOD A x 2, Max verbal cues with proper foot and hand placement, as patient descended to a seated postion needed MAX A x 2. Seated from bed side to a supine position MOD A w/ assistance to lower extremities to clear bed edge. Patient in semi-fowlers position as exited room w/ call gross and tray table by patient side.
--- NOTE | 2020-11-27 10:14 | NUR ---
1005 RETURNED TO BED BY PHYSICAL THERAPH. RAILS UP. CALL LIGHT WITHIN REACH
--- NOTE | 2020-11-27 11:49 | NUR ---
1030-HOSPITALIST ROUNDED ON PT, NEW ORDERS DISCUSSED, TO ENTER
[2020-11-27 14:55] VITALS: BP 126/56
[2020-11-27 18:24] VITALS: BP 122/56
[2020-11-27 21:00] VITALS: BP 101/59
--- NOTE | 2020-11-27 21:01 | NUR ---
MUCH MORE AWAKE AND INTERACTIVE THAN LAST 24 HOURS. TRIES FREQUENTLY TO GET OUT OF BED. FAINT INSPIRATORY CRSCKLES THORUGHT HIS CHEST. NEEDS ENCOURAGMENT TO TAKE MEDICATIONS.
--- NOTE | 2020-11-27 22:18 | NUR ---
to sleep-CHEMICAL DEPENDENCY ATTENDANT at bedside.
--- NOTE | 2020-11-28 00:16 | NUR ---
Incontinent of BM and urine. Linen change completed.
[2020-11-28 00:18] VITALS: BP 134/68
--- NOTE | 2020-11-28 02:00 | NUR ---
PATIENT CLEANED UP OF MODERATE AMOUNT OF LIQUID STOOL AND URINE. BED LINENS CHANGED AND CHRIS CARE PROVIDED. REPOSITIONED PATIENT AND PILLOW PROVIDED UNDER LEGS. PATIENT SLIGHTLY CONFUSED AND WANTING TO GET OUT OF BED. REORIENTED PATIENT, HE REPOSTITIONED HIMSELF FOR COMFORT AND IS RESTING NOW.
[2020-11-28 04:45] LABS: HEMOGLOBIN 9.9 g/dl (14.0-18.0); MEAN CELL VOLUME 114.9 fL CALC (80.0-100.0); MEAN CORPUSCULAR HGB 37.9 pG CALC (26.0-32.0); NEUT# 3.48 thou/uL (1.82-7.42); RED BLOOD COUNT 2.61 mill/uL (4.70-6.10); RED CELL DISTRI WIDTH 13.9 % (11.5-15.5)
[2020-11-28 05:18] LABS: ALBUMIN 2.5 g/dL (3.2-5.0); ALKALINE PHOSPHATASE 45 u/l (38-126); ANION GAP 8 (6-22 (CALC)); BILIRUBIN, TOTAL 2.9 mg/dL (0.0-1.4); BUN 7 mg/dL (9-20); BUN/CREATININE RATIO 11 (12-20 (CALC)); CARBON DIOXIDE 28 mmol/l (22-30); CHLORIDE 103 mmol/l (95-108); CREATININE 0.6 mg/dL (0.7-1.3); GFR > 60 ML/MIN (>=60 (CALC)); GFR FOR AFR.AMER. > 60 ML/MIN (>=60 (CALC)); SGOT/AST 63 u/l (17-59); SODIUM 136 mmol/l (137-146); TOTAL PROTEIN 5.8 g/dL (6.3-8.2)
--- NOTE | 2020-11-28 05:36 | NUR ---
after sleeping for an hour-patient awake, disoriented and denying care to be given. Needed to complete bed linen change for bowel and bladder incontinence--patient refuses for it to be completed. waitied 1/2 hour and slowly convinced him to allow for the cleanup. Refuses food and declines fluids of any type.
--- NOTE | 2020-11-28 06:38 | NUR ---
Fed patient few spoonfuls applesauce. SLowly sipping water with much encourgement.
[2020-11-28 08:35] VITALS: BP 127/66
--- NOTE | 2020-11-28 08:59 | NUR ---
ASSESSMENT CHARTED. PT RESTRLESS, ATTEMPTING TO SCOOT TO END OF BED. DENIES PAIN AT THIS TIME. REPOSITIONED TO [facility] WITH LEGS ELEVATED.
--- NOTE | 2020-11-28 11:08 | NUR ---
URINE CULTURE OBTAINED PER SIDDIQI CATH, TEMP. 101. LG. GREEN LOOSE STOOL NOTED WITH PARTIAL BATH.
[2020-11-28 11:12] LABS: URINE BLOOD DIPSTICK NEGATIVE (NEGATIVE); URINE COLOR YELLOW; URINE GLUCOSE - DIPSTICK NEGATIVE (NEGATIVE); URINE KETONE TRACE mg/dL (NEGATIVE); URINE LEUK ESTERASE NEGATIVE (NEGATIVE); URINE PROTEIN - DIPSTICK NEGATIVE (NEG-TRACE); URINE SPECIFIC GRAVITY 1.025
[2020-11-28 11:16] LABS: URINE BILIRUBIN - DIPSTICK SMALL (NEGATIVE); URINE NITRITE - DIPSTICK NEGATIVE (Negative)
--- NOTE | 2020-11-28 11:24 | NUR ---
PT REFUSED TO TAKE THE MOTRIN OR DRINK FLUIDS. ALSO REFUSED CHEST XRAY /C-SCAN. PT HAVING HICCUPS.
--- NOTE | 2020-11-28 12:25 | NUR ---
SPOKE WITH PATIENT REGARDING PICC LINE. PT REFUSES. RADIOLOGY AWARE.
--- NOTE | 2020-11-28 12:52 | NUR ---
PT MEDICATED FOR AGITATION PRIOR TO RADIOLOGY TESTING
--- NOTE | 2020-11-28 12:53 | NUR ---
TEMP 100.6
--- NOTE | 2020-11-28 13:17 | NUR ---
PT TO RADIOLOGY VIA BED
[2020-11-28 14:51] VITALS: BP 133/70
--- NOTE | 2020-11-28 15:04 | NUR ---
PT note Enter patient room, nurse stated he was getting a CT scan or MRI. Will not be back for a bit
--- NOTE | 2020-11-28 15:43 | NUR ---
IV FLUIDS STARTED. CALL PLACED TO SON X 3 REGARDING DNR PAPERWORK WITHOUT RESPONSE
--- NOTE | 2020-11-28 17:08 | NUR ---
PT RESPONDS TO VERBAL STIMULI AND OBEYS COMMAND TO OPEN EYES. UNABLE TO SUCK ON STRAW OR SWALLOW FLUID. LACTULOSE NOT GIVEN
--- NOTE | 2020-11-28 19:20 | NUR ---
SPOKE WITH PTS SISTER REGARDING PLAN OF CARE. DISCUSSION REGARDING END OF LIFE WISHES WAS STARTED. SISTER WILL SPEAK WITH PATIENTS MOTHER REGARDING THIS TOPIC
--- NOTE | 2020-11-28 19:25 | NUR ---
REPORT GIVEN TO DUY WALKER AND MAYI WALKER
[2020-11-28 20:33] VITALS: BP 128/61
--- NOTE | 2020-11-29 00:13 | NUR ---
PT RESTING WITH EYES CLOSED AROUSES EASILY. FOLLOWS COMMANDS SLOWLY. OFFERED WATER AND APPLE JUICE TO DRINK AND REFUSED BOTH. PT QUICKLY RETURNS TO RESTING STATES WITH EYES CLOSED AND FACE RELAXED
--- NOTE | 2020-11-29 01:03 | NUR ---
PT GIVEN CHRIS CARE AND FULL LINEN CHANGE. PT CHUX WAS SOAKED WITH STRONG SMELLING YELLOW URINE. PT MEDICATED FOR FEVER OF 100.8.
--- NOTE | 2020-11-29 02:01 | NUR ---
PT RESTING WITH EYES CLOSED.
--- NOTE | 2020-11-29 02:36 | NUR ---
PT SITTING UP IN BED DRINKING WATER
[2020-11-29 04:52] LABS: HEMATOCRIT 30.1 % (39.0-50.0); HEMOGLOBIN 9.7 g/dl (14.0-18.0); IMMATURE GRANULOCYTES 0.2 % (0.0-5.0); MEAN CELL VOLUME 114.9 fL CALC (80.0-100.0); MEAN CORPUSCULAR HGB CONC 32.2 g/dL CAL (32.0-36.0); NEUT# 4.72 thou/uL (1.82-7.42); RED BLOOD COUNT 2.62 mill/uL (4.70-6.10); RED CELL DISTRI WIDTH 14.1 % (11.5-15.5)
[2020-11-29 05:16] LABS: ALBUMIN 2.5 g/dL (3.2-5.0); ALKALINE PHOSPHATASE 43 u/l (38-126); ANION GAP 9 (6-22 (CALC)); BILIRUBIN, TOTAL 2.7 mg/dL (0.0-1.4); BUN 5 mg/dL (9-20); BUN/CREATININE RATIO 7 (12-20 (CALC)); CARBON DIOXIDE 28 mmol/l (22-30); CHLORIDE 101 mmol/l (95-108); CREATININE 0.7 mg/dL (0.7-1.3); GFR > 60 ML/MIN (>=60 (CALC)); GFR FOR AFR.AMER. > 60 ML/MIN (>=60 (CALC)); POTASSIUM 2.8 mmol/l (3.5-5.1); SGOT/AST 65 u/l (17-59); SODIUM 135 mmol/l (137-146); TOTAL PROTEIN 5.9 g/dL (6.3-8.2)
[2020-11-29 05:17] LABS: MAGNESIUM 1.1 mg/dL (1.6-2.3)
[2020-11-29 05:36] VITALS: BP 98/56
[2020-11-29 08:00] VITALS: BP 117/58
--- NOTE | 2020-11-29 08:25 | NUR ---
RECEIVED SITTING UP IN BED, EYES CLOSED, BREATHING EASY. VS WNL. NO VOICED C/O'S WHEN ASKED. NOTED MOD AMOUNT OF STOOL IN BEDSIDE COMMODE 929: DR. THOMAS HERE TO SEE PT. ALSO INFORMED DR. MARINELLI'S FATHER IS HERE TO SPEAK WITH HIM. PT. UP IN CHAIR AT THIS TIME, AWAKE AND TALKING.
[2020-11-29 14:30] VITALS: BP 105/58
--- NOTE | 2020-11-29 14:41 | NUR ---
1400: REC'D REPORT PER AARON VALENTIN. ASSUMED CARE OF STABLE. PT. PT SITTING UP IN BED RESTING QUIETLY. VITALS CHARTED. IV PICC LINE FLUSHED 10ML NS, INFUSING D5 1/2 NS AT 80ML HR. PT DECLINED FLUIDS AT THIS TIME.
--- NOTE | 2020-11-29 16:00 | NUR ---
PT ROTATED, CHANGED WITH VOID/STOOL.
--- NOTE | 2020-11-29 16:41 | NUR ---
PT ABLE TO VOID IN URINAL, CL YELLOW URINE NOTED.
[2020-11-29 19:54] VITALS: BP 116/57
--- NOTE | 2020-11-29 21:38 | NUR ---
1999-Awake, alert interactive consersation appropriate and of clear though. Chest sounds clear anteriorly and posteriorly. Monitor with ST 105+/-bpm rare PAC. IV site-PICC without signs of infiltration/redness. Both legs with less pitting edema than previous last 24 shift-2+. Still remain red but lower leg skin without weeping. Increasing PO fluid intake.
--- NOTE | 2020-11-29 23:27 | NUR ---
tEMP-100.7-Motrin PO given.
--- NOTE | 2020-11-30 01:49 | NUR ---
Incontinent of urine and liquid stool. BM-yellow liquid consistency. complete linen change completed.
[2020-11-30 05:03] LABS: HEMATOCRIT 29.4 % (39.0-50.0); HEMOGLOBIN 9.7 g/dl (14.0-18.0); MEAN CELL VOLUME 113.5 fL CALC (80.0-100.0); MEAN CORPUSCULAR HGB 37.5 pG CALC (26.0-32.0); RED BLOOD COUNT 2.59 mill/uL (4.70-6.10); RED CELL DISTRI WIDTH 13.8 % (11.5-15.5)
[2020-11-30 05:20] VITALS: BP 106/56
[2020-11-30 05:20] LABS: BUN 4 mg/dL (9-20); BUN/CREATININE RATIO 7 (12-20 (CALC)); CARBON DIOXIDE 26 mmol/l (22-30); CHLORIDE 102 mmol/l (95-108); CREATININE 0.6 mg/dL (0.7-1.3); GFR > 60 ML/MIN (>=60 (CALC)); GFR FOR AFR.AMER. > 60 ML/MIN (>=60 (CALC)); SODIUM 133 mmol/l (137-146)
[2020-11-30 05:22] LABS: ANION GAP 8 (6-22 (CALC)); POTASSIUM 3.4 mmol/l (3.5-5.1)
[2020-11-30 08:39] VITALS: BP 115/58
[2020-11-30 12:12] VITALS: BP 120/69
--- NOTE | 2020-11-30 12:54 | NUR ---
PT SLEEPING. CALL LANDRY IN REACH. SIDERAILS UP
--- NOTE | 2020-11-30 14:58 | NUR ---
SPOKE WITH MR. HARRIS'S MOM, GAVE HER AN UPDATE. PT. ABLE TO TALK TO HER ON THE PHONE.
[2020-11-30 19:15] VITALS: BP 119/67
--- NOTE | 2020-11-30 21:25 | NUR ---
1914-temp 100.7 motirn given 600mg given. 1999-Patient sleeping. Chest sounds clear anteriorly bilaterally. sinusn tach with rare unifocal PVC. PIC line intact-secured with wrap and coban. lower legs with 2+pitting edema with less redness than previous shifts. 2029-temp 99.6. Incontinent of stool and urine. patient unaware of incontinence. Complete linen change. No signs of skin breakdwon on bony prominences. Incosistent clarity of thought. 2124-temp 98.5
[2020-11-30 23:54] VITALS: BP 104/57
--- NOTE | 2020-12-01 00:03 | NUR ---
Stood at bedside with assistance of 2 to void into bedisde commode. voided 300cc clear dark yellow to orange urine. Then sat on bed with legs dangling x 15 minutes. clear conversation. requested more activity with PT.
--- NOTE | 2020-12-01 02:38 | NUR ---
turned car installations supervisor for assistance to void. pt stood to void with assistance of 2. then sat on edge of bed [id number].
[2020-12-01 04:51] LABS: HEMATOCRIT 31.5 % (39.0-50.0); HEMOGLOBIN 10.2 g/dl (14.0-18.0); MEAN CELL VOLUME 114.5 fL CALC (80.0-100.0); MEAN CORPUSCULAR HGB 37.1 pG CALC (26.0-32.0); MEAN CORPUSCULAR HGB CONC 32.4 g/dL CAL (32.0-36.0); RED BLOOD COUNT 2.75 mill/uL (4.70-6.10); RED CELL DISTRI WIDTH 13.7 % (11.5-15.5)
--- NOTE | 2020-12-01 04:53 | NUR ---
requested to call his mother. knew the telephone number. call completed with appropriate communication.
[2020-12-01 05:09] LABS: ANION GAP 9 (6-22 (CALC)); BUN 2 mg/dL (9-20); BUN/CREATININE RATIO 4 (12-20 (CALC)); CARBON DIOXIDE 26 mmol/l (22-30); CHLORIDE 101 mmol/l (95-108); CREATININE 0.6 mg/dL (0.7-1.3); GFR > 60 ML/MIN (>=60 (CALC)); GFR FOR AFR.AMER. > 60 ML/MIN (>=60 (CALC)); POTASSIUM 2.8 mmol/l (3.5-5.1); SODIUM 134 mmol/l (137-146)
--- NOTE | 2020-12-01 06:57 | NUR ---
Up to BSC-voided approximately 300cc+ urine and loose liquid stool.
--- NOTE | 2020-12-01 07:05 | NUR ---
up to BSC to stand to void.
[2020-12-01 07:30] VITALS: BP 115/65
--- NOTE | 2020-12-01 07:42 | NUR ---
REC'D REPORT PER Christy RANGEL RN. PT SITTING UP IN BED AWAKE,ALERT, STABLE. MAG. DOSE INFUSING ORDERED.
--- NOTE | 2020-12-01 08:35 | NUR ---
AM ASSESSMENT CHARTED. PT SITTING UP AT BEDSIDE AWAITING FOR BREAKFAST.
--- NOTE | 2020-12-01 10:11 | NUR ---
PT RESTING ON BED QUIETLY. NO ACUTE DISTRESS. CALL LANDRY WITHIN REACH.
--- NOTE | 2020-12-01 10:49 | NUR ---
PHYSICIAN ROUNDS COMPLETE BY DR ASHLEY AND LUCILA BIRCH
--- NOTE | 2020-12-01 12:08 | NUR ---
SITTING AT BEDSIDE FOR LUNCH AFTER USING BSC WITH ASSIST OF 1
--- NOTE | 2020-12-01 13:23 | NUR ---
1230: PT ASSISTED TO CHAIR, SITTING UP WHILE TOLERATED FLUIDS. MORE TALKATIVE TODAY.
--- NOTE | 2020-12-01 14:16 | NUR ---
PT RETURNED TO BED, ABLEW TO TRANSFER WITH MINIMAL ASSISTANCE.
--- NOTE | 2020-12-01 14:45 | NUR ---
PT ASSISTED UP TO BEDSIDE COMMODE.
[2020-12-01 15:00] VITALS: BP 120/72
--- NOTE | 2020-12-01 15:00 | NUR ---
SBAR REPORT GIVEN TO LOU CLANCY. PT CURRENTLYU UP TO VOID WITH MINIMAL ASSISTANCE. LABS OBTAINED PER TECH, RESULTS PENDING. ACCU-CHECK OBTAINED, 111.
--- NOTE | 2020-12-01 15:08 | NUR ---
PT TRANSFERED TO FLOOR VIA BED. PT IN STABLE CONDITION. ORIENTED TO ROOM AND CALL LIGHT SYSTEM. NO APPARENT DISTRESS AT THIS TIME. CALL LIGHT WITHIN REACH. WILL CONTINUE TO MONITOR.
--- NOTE | 2020-12-01 15:15 | NUR ---
PT FOUND ON FLOOR IN A SITTING POSITION BETWEEN BATHROOM AND ROOM. PT STATES HE SLID DOWN TO FLOOR ATTEMPTING TO CHECK OUT ROOM. PT ALERT AND ORIENTED X3. NO APPARENT DISTRESS NOTED. PT DENIES ANY PAIN OR INJURY AT THIS TIME. PT ASSISTED UP INTO BED X3 PERSON ASSIST. DR. ASHLEY NOTIFIED OF INCIDENT. NO NEW ORDERED. PT ROOM MOVED CLOSER TO NURSES STATION AND BED ALARM ACTIVATED. PT HAD NONSKID SOCKS ON AT TIME OF INCIDENT. VS 98.3, 94% ON RA, 101, 20, 113/68.
--- NOTE | 2020-12-01 16:20 | NUR ---
PT RESTING IN BED. NO APPARENT DISTRESS NOTED. CALL LIGHT WITHIN REACH. BED ALARM ON FOR SAFETY. WILL CONTINUE TO MONITOR.
--- NOTE | 2020-12-01 16:22 | NUR ---
LEFT MESSAGE FOR PT MOTHER TO INFORM OF INCIDENT. TECHNICIAN AUTOMATED EQUIPMENT INFORMED WELL.
--- NOTE | 2020-12-01 16:27 | NUR ---
PHONE CALL BACK FROM MOTHER SUKHDEEP. UPDATED ON PT INCIDENT AT THIS TIME AND PROVIDED CURRENT ROOM NUMBER AT THIS TIME. MOTHER VOICED NO CONCERNS AT THIS TIME.
[2020-12-01 19:00] VITALS: BP 126/65
--- NOTE | 2020-12-01 19:30 | NUR ---
PATIENT RESTING IN BED AT THIS TIME-ORIENTED TO PERSON ONLY AT THIS TIME-CONFUSED TO PLACE AND TIME. IVF PATENT AND INFUSING VIA RIGHT ARM PICC ORDERED. PATIENT WITH BLE SWELLING-3+. BLE ARE RED U P TO THE KNEE. ENCOURAGED TO ELEVATE BOTH FEET ON PILLOWS. PATIENT ABD IS SOFT WITH BS+. LUNGS ARE CLEAR AT THIS TIME. VOIDING CLEAR OCTAVIO URINE IN URINAL. BED ALARM IN PLACE FOR PATIENT SAFETY AFTER FALL THIS AFTERNOON. SAFETY PRECATIONS REINFORCED. CALL LIGHT IN REACH. WILL CONT TO MONITOR.
--- NOTE | 2020-12-01 23:00 | NUR ---
PATIENT CALLED FOR ASSIST TO BSC FOR BM-MIN ASSIST-LARGE LIQUID BROWN STOOL AND THEN ASSISTED BACK TO THE BED. IVF PATENT AND INFUSING VIA RIGHT ARM PICC AT 80CC/HR. TELE MONITOR IN PLACE. BED ALARM IN PLACE. SAFETY PRECAUTIONS REINFORCED. CALL LIGHT IN REACH. WILL CONT TO MONITOR.
[2020-12-02] VITALS: BP 123/57
[2020-12-02 04:00] VITALS: BP 117/57
--- NOTE | 2020-12-02 05:38 | NUR ---
PATIENT RESTING IN BED AT THIS TIME-EYES CLOSED. RESPS ARE EVEN AND UNLABORED. TELE MONITOR IN PLACE-LAST READING WAS ST-106. PATIENT WAS UP TO THE BR WITH MAX ASSIST AND HAD LOOSE YELLOW STOOLS. ASSIST BACK TO BED. PATIENT REMAINS CONFUSED AT TIMES. ORIENTED TO SELF ONLY. L;AB WORK WAS DRAWN FROM RIGHT UPPER ARM PICC WITH GOOD BLOOD RETURN. FLUSHED PER PROTOCOL. BED ALARM IN PLACE FOR PATIENT SAFETY. CALL LIGHT IN REACH. WILL CONT TO MONITOR.
[2020-12-02 06:29] LABS: ANION GAP 11 (6-22 (CALC)); BUN < 2 mg/dL (9-20); CARBON DIOXIDE 27 mmol/l (22-30); CHLORIDE 100 mmol/l (95-108); CREATININE 0.6 mg/dL (0.7-1.3); GFR > 60 ML/MIN (>=60 (CALC)); GFR FOR AFR.AMER. > 60 ML/MIN (>=60 (CALC)); POTASSIUM 2.9 mmol/l (3.5-5.1); SODIUM 135 mmol/l (137-146)
[2020-12-02 06:30] LABS: MAGNESIUM 1.8 mg/dL (1.6-2.3)
[2020-12-02 06:58] LABS: HEMATOCRIT 32.5 % (39.0-50.0); HEMOGLOBIN 10.7 g/dl (14.0-18.0); MEAN CELL VOLUME 112.8 fL CALC (80.0-100.0); MEAN CORPUSCULAR HGB 37.2 pG CALC (26.0-32.0); MEAN CORPUSCULAR HGB CONC 32.9 g/dL CAL (32.0-36.0); RED BLOOD COUNT 2.88 mill/uL (4.70-6.10); RED CELL DISTRI WIDTH 13.6 % (11.5-15.5)
--- NOTE | 2020-12-02 07:00 | NUR ---
RECIEVED REPORT FROM AARON PRECIADO
[2020-12-02 07:46] VITALS: BP 113/59
--- NOTE | 2020-12-02 07:46 | NUR ---
PT RESTING IN SEMI FOWLERS POSITION. ASSESSMENT AND VITALS COMPLETED. PT IS A/O X2. ASSESSMENT AND VITALS COMPLETED.TEMP 99.0 BP 113/59, HR 96, O2 99% ON ROOM AIR. RESPIRATIONS ARE EVEN AND UNLABORED. LUNG SOUNDS ARE CLEAR. HEART RHYTHM NORMAL WITH TELE IN PLACE. BOWEL SOUNDS ARE ACTIVE, LBM 12/02/20. PEDAL PULSES WEAK. 3+ EDEMA NOTED TO BLE, ENCOURAGED ELEVATION.JAUNDICE NOTED. TREMORS NOTED. PT STATES HE WANTS TO SPEAK TO DR ABOUT " GETTING SOMETHING TO HELP WITH HIS STRESS." ATIVAN TO BE ADMINISTERED WITH MORNING MEDICATIONS. PT DENIES OF ANY ADDITIONAL NEEDS AT THIS TIME. ALL SAFETY PRECAUTIONS ARE IN PLACE WITH CALL LIGHT IN REACH. BED ALARM ACTIVE. WILL CONTINUE TO MONITOR.
[2020-12-02 10:40] VITALS: BP 115/57
--- NOTE | 2020-12-02 11:07 | NUR ---
DR ASHLEY AND TRES,ANASHTYN AT BEDSIDE
--- NOTE | 2020-12-02 12:09 | NUR ---
PT RESTING IN SEMI FOWLERS POSITION TALKING ON PHONE. RESPIRATIONS ARE EVEN AND UNLABORED WITH NO DISTRESS NOTED. TELE MONITORING IN PLACE. DOUBLE LUMEN PICC INFUSING WITH IVF PER ORDER, SITE REMAINS HEALTHY AND PATENT. PT DENIES OF ANY PAINS OR DISCOMFORTS AT THIS TIME. ALL SAFETY PRECAUTIONS ARE IN PLACE WITH CALL LIGHT IN REACH.BED ALARM IN PLACE. WILL CONTINUE TO MONITOR.
--- NOTE | 2020-12-02 14:14 | NUR ---
LASIX ADMINISTERED. DOUBLE LUMEN LINE FLUSHED WITH HEPARIN.
[2020-12-02 15:00] VITALS: BP 119/65
--- NOTE | 2020-12-02 16:32 | NUR ---
PT RESTING IN SEMI FOWLERS POSITION. RESPIRATIONS ARE EVEN AND UNLABORED WITH NO DISTRESS NOTED. TELE MONITORING IN PLACE. DOUBLE LUMEN IN ANA, INFUSING WITH IVF PER ORDER, SITE REMAINS HEALTHY AND PATENT. PT DENIES OF ANY PAINS OR DISCOMFORTS AT THIS TIME. LARGE SWEET TEA CALLED FOR PER PT. ALL SAFETY PECAUTIONS ARE IN PLACE WITH CALL LIGHT IN REACH. BED ALARM ACTIVE. WILL CONTINUE TO MONITOR
[2020-12-02 19:00] VITALS: BP 95/52
--- NOTE | 2020-12-02 19:33 | NUR ---
Patient did B LE exercises in seated position: hip flexion, knee extension, hamstring curls, hip adduction, hip abduction, and ankle pumps for 10 reps x 2 sets with constant verbal and tactile cuing to help decrease trick movements. Patient also did log rolling supine to sitting and sit to stand push off ADLs with min A to CGA x 1 with constant verbal and tactile cuing to help decrease fall risks (2 to 3 reps).
--- NOTE | 2020-12-02 19:39 | NUR ---
PATIENT RESTING IN BED WITH HOB ELEVATED AND EYES CLOSED. RESPS ARE EVEN AND UNLABORED AT THIS TIME. IVF D51/2NS PATENT AND INFUSING VIA RIGHT U PPER ARM PICC AT 80CC/HR. SITE APPEARS HEALTHY AT THIS TIME. TELE MONITOR IN PLACE. BED ALARM IN PLACE FOR PATIENT SAFETY. CALL LIGHT IN REACH. WILL CONT TO MONITOR.
--- NOTE | 2020-12-02 21:30 | NUR ---
BED ALARM GOING OFF AND RESPONDED TO ROOM-PATIENT STATES THAT HE HAS TO USE BSC-ASSIST TO THE BSC-STILL UNSTEADY ON HIS FEET. MODERATE AMT OF LIQUID LIGHT BROWN STOOL. PATIENT ALSO VOIDED LARGE AMT OF URINE. ASSISTED WITH PERICARE WITH SOAP AND WATER. ASSTED BACK TO BED. IVF PATIENT AND INFUSING VIA RIGHT UPPER ARM PICC. SITE REMAINS HEALTHY AT THIS TIME. TELE MONITOR IN PLACE-LAST [id number]. PATIENT IS MORE ALERT AT THIS TIME. ORIENTED TO PERSON PLACE AND DATE AT THIS TIME. ABLE TO NAME PRESIDENT. SAFETY PRECAUTIONS REINFORCED. BED ALARM RESET FOR PATIENT SAFETY. CALL LIGHT IN REACH. WILL CONT TO MONITOR.
[2020-12-03] VITALS: BP 114/64
--- NOTE | 2020-12-03 01:49 | NUR ---
PATIENT RESTING IN BED WITH SHEET OVER HIS HEAD. RESPS ARE EVEN AND UNLABORED. IVF D51/2 NS PATENT AND INFUSING VIA RIGHT UPPER ARM PICC. TELE MONITOR IN PLACE. BED ALARM FOR PATIENT SAFETY. CALL LIGHT IN REACH. WILL CONT TO MONITOR.
--- NOTE | 2020-12-03 03:33 | NUR ---
PATIENT CALLED FOR ASSIST TO VOID. STOOD TO VOID IN BSC AND THEN ASSISTED BACK TO BED, BED ALARM BACK IN PLACE FOR PATIENT SAFETY. CALL LIGHT IN REACH. WILL CONT TO MONITOR.
[2020-12-03 04:00] VITALS: BP 101/54
--- NOTE | 2020-12-03 04:32 | NUR ---
PATIENT RESTING IN BED-POSITIONED ON LEFT SIDE. LAB WORK DRAWN FROM RIGHT UPPER ARM PICC WITHOUT ANY DIFFICULTY-GOOD BLOOD RETURN. FLUSH PER [facility] PROTOCOL WITH SALINE FLUSH AND HEP RIGOBERTO. IVF PATENT AND INFUSING AT 80CC/HR, CALL LIGHT IN REACH. WILL CONT TO MONITOR.
[2020-12-03 05:42] LABS: HEMATOCRIT 29.1 % (39.0-50.0); HEMOGLOBIN 9.5 g/dl (14.0-18.0); IMMATURE GRANULOCYTES 0.2 % (0.0-5.0); MEAN CELL VOLUME 113.7 fL CALC (80.0-100.0); MEAN CORPUSCULAR HGB 37.1 pG CALC (26.0-32.0); MEAN CORPUSCULAR HGB CONC 32.6 g/dL CAL (32.0-36.0); NEUT# 1.8 thou/uL (1.82-7.42); RED BLOOD COUNT 2.56 mill/uL (4.70-6.10); RED CELL DISTRI WIDTH 13.6 % (11.5-15.5)
[2020-12-03 05:58] LABS: INTERNATIONAL NORMALIZED RATIO 1.5 RATIO (0.7-1.3); PROTHROMBIN TIME 15.3 SECONDS (9.0-12.5)
[2020-12-03 05:59] LABS: ALBUMIN 2.3 g/dL (3.2-5.0); ALKALINE PHOSPHATASE 57 u/l (38-126); ANION GAP 9 (6-22 (CALC)); BUN < 2 mg/dL (9-20); CARBON DIOXIDE 28 mmol/l (22-30); CHLORIDE 102 mmol/l (95-108); CREATININE 0.5 mg/dL (0.7-1.3); GFR > 60 ML/MIN (>=60 (CALC)); GFR FOR AFR.AMER. > 60 ML/MIN (>=60 (CALC)); POTASSIUM 2.9 mmol/l (3.5-5.1); SGOT/AST 97 u/l (17-59); SODIUM 136 mmol/l (137-146); TOTAL PROTEIN 5.7 g/dL (6.3-8.2)
[2020-12-03 11:00] VITALS: BP 117/64
--- NOTE | 2020-12-03 11:06 | NUR ---
PT SITTING ON SIDE OF BED, PT A&Ox2. PT DENIES ANY PAIN OR ADDITIONAL CONCERNS AT THIS TIME. VITALS AND ASSESSMENT COMPLETED. LUNG SOUNDS CLEAR,SPO2 98% ON ROOM AIR. BOWEL SOUNDS ACTIVE, LBM ON 12/03. SAFETY MEASURES IN PLACE AND CALL LIGHT WITHIN PT REACH
--- NOTE | 2020-12-03 12:00 | NUR ---
Pt up to bathroom for bowel movement. Pt had an accident before making it to commode. PT VERY APOLOGIC. Pt cleaned, gown and bed changed. Pt back to bed, safetY measures in place, bed alarm activated Will continue to monitor patient
[2020-12-03] MEDS ORDERED: KRISTALOSE20 GM PO (13:45)
[2020-12-03] MEDS ORDERED: XIFAXAN200 MG PO (13:45)
[2020-12-03] MEDS ORDERED: CIPROFLOXACN500 MG PO (13:47)
[2020-12-03] MEDS ORDERED: KLOR-CON M2020 MEQ PO (13:58)
[2020-12-03] MEDS ORDERED: CONSTULOSE10 GM/15 M PO (14:16)
--- NOTE | 2020-12-03 15:55 | NUR ---
Pt has discharge orders. Picc line removed. Pressure and dressing applied. Pt tolerated well. Informed family of dischrarge via telephone [phone].
[2020-12-03 16:00] VITALS: BP 114/73
--- NOTE | 2020-12-03 16:16 | NUR ---
Pt given discharge orders. Patient verbalizes understanding of discharge orders
[2020-12-04] MEDS ORDERED: LACTULOSE PO (11:54)
== END 2020-12-03 17:20 | DRG 432 ==
LOC: ED 10:48 → ED-I 12:50 → ED 14:51 → ED-I 14:52 → MS2 14:52 → ED-I 11-26 03:31 → MSH 11-26 15:39 → MS2 12-01 15:18
PROVIDERS: Emergency Medicine; Nurse Practitioner; ADMIT Internal Medicine; ATTEND Hospitalist
PROC: 02HV33Z Insertion of Infusion Device into Superior Vena Cava, Percutaneous Approach (ICD-10-PCS; principal; 2020-11-28)
PROC: B518ZZA Fluoroscopy of Superior Vena Cava, Guidance (ICD-10-PCS; 2020-11-28)
DX: K70.40 Alcoholic hepatic failure without coma (principal); J18.9 Pneumonia, unspecified organism; E87.1 Hypo-osmolality and hyponatremia; E87.2 Acidosis; F10.10 Alcohol abuse, uncomplicated; K70.30 Alcoholic cirrhosis of liver without ascites; E83.42 Hypomagnesemia; E87.6 Hypokalemia; I10 Essential (primary) hypertension; F41.9 Anxiety disorder, unspecified; G62.9 Polyneuropathy, unspecified; F17.200 Nicotine dependence, unspecified, uncomplicated; Z20.822 Contact with and (suspected) exposure to COVID-19
CPT/HCPCS: J1650; J2060; J3475; S0166